=== PATIENT | female | born 1965 | race Hispanic/Latino ===

== ENCOUNTER 2017-07-29 16:38 | Emergency (ER) | payer BC ==
[2017-07-29 16:55] VITALS: BP 131/79; PULSE 94; RESP 16; TEMP 98.1; O2SAT 98
--- NOTE | 2017-07-29 17:46 | C.PDOC ---
History Of Present Illness 52 year old female presents to the emergency department with a diffuse maculopapular pruritic rash across her body and extremities which started two weeks ago. Patient reports she went to see two primary care doctors as well as a breakfast cook at [place] who prescribed Prednisone which the patient states she has yet to take. Patient denies fever or other complaints. Time Seen by Provider: 07/29/17 17:12 Chief Complaint (Nursing): Abnormal Skin Integrity History Per: Patient History/Exam Limitations: no limitations Onset/Duration Of Symptoms: Other (two weeks) Current Symptoms Are (Timing): Still Present Quality Of Symptoms: Itching Past Medical History Reviewed: Historical Data, Nursing Documentation, Vital Signs Vital Signs: Last Vital Signs Temp 98.1 F 07/29/17 16:49 Pulse 94 H 07/29/17 16:49 Resp 16 07/29/17 16:49 BP 131/79 07/29/17 16:49 Pulse Ox 98 07/29/17 17:49 - Medical History PMH: HTN Surgical History: No Surg Hx Family History: States: No Known Family Hx - Social History Hx Alcohol Use: No Hx Substance Use: No - Immunization History Hx Tetanus Toxoid Vaccination: No Hx Influenza Vaccination: No Hx Pneumococcal Vaccination: No Review Of Systems Except As Marked, All Systems Reviewed And Found Negative. Constitutional: Negative for: Fever Skin: Positive for: Other (diffuse maculopapular pruritic rash) Physical Exam - Physical Exam Appears: Non-toxic, No Acute Distress Skin: Warm, Other (diffuse maculopapular rash, erythematous, blanching) Neck: Supple Cardiovascular: Rhythm Regular Respiratory: Normal Breath Sounds, No Rales, No Rhonchi, No Wheezing Gastrointestinal/Abdominal: Soft, No Tenderness Neurological/Psych: Oriented x3, Normal Speech, Normal Cognition ED Course And Treatment O2 Sat by Pulse Oximetry: 98 (RA) Pulse Ox Interpretation: Normal Medical Decision Making Medical Decision Making: Plan: Benadryl 50mg PO Pepcid 20mg PO Patient agreed to take the Prednisone prescribed by breakfast cook. Disposition - Disposition Disposition: HOME/ ROUTINE Disposition Time: 06:00 Condition: STABLE Additional Instructions: follow up with your doctor. return to er with worsening symptoms or concerns. please take your prednisone as prescribed. Prescriptions: DiphenhydrAMINE [Benadryl] 25 mg PO Q4 PRN #20 cap PRN Reason: Itching / Pruritus Famotidine [Pepcid] 20 mg PO DAILY #10 tab Instructions: Allergy Testing, Skin Rash, Hives (DC) Forms: [facility] (Azeri) - Clinical Impression Clinical Impression: Allergic reaction - Scribe Statement The provider has reviewed the documentation as recorded by the Scribe (Tam Torres) Provider Attestation: All medical record entries made by the Scribe were at my direction and personally dictated by me. I have reviewed the chart and agree that the record accurately reflects my personal performance of the history, physical exam, medical decision making, and the department course for this patient. I have also personally directed, reviewed, and agree with the discharge instructions and disposition.
== END 2017-07-29 18:06 | disposition home or self-care (01) ==
LOC: C.ER 16:38
DX: T78.40XA Allergy, unspecified, initial encounter (principal); X58.XXXA Exposure to other specified factors, initial encounter; I10 Essential (primary) hypertension